=== PATIENT | female | born 1970 | race African-American/Black ===

== ENCOUNTER 2020-01-20 00:10 | Emergency (ER) | payer OTHER ==
[~2020-01-20] VITALS: Ht 157.5 cm; Wt 81.8 kg
[2020-01-20] MEDS ORDERED: ANAS1TAB2 (00:18)
[2020-01-20 01:38] LABS: BASO % 0.1 % (0.0-1.0); EOS # 0.1 10^3/uL (0.0-0.5); EOS % 1.9 % (0.0-3.0); HEMATOCRIT 40.1 % (36.0-47.0); HEMOGLOBIN 12.4 g/dl (12.0-15.5); LYMPH # 1.4 10^3/uL (1.5-5.0); LYMPH % 18.7 % (24.0-44.0); MEAN CORPUSCULAR HEMOGLOBIN 29.2 pg (27.0-33.0); MEAN CORPUSCULAR HGB CONC 30.9 g/dl (32.0-36.5); MEAN CORPUSCULAR VOLUME 94.4 fl (80.0-96.0); MONO # 0.5 10^3/uL (0.0-0.8); MONO % 6.3 % (0.0-5.0); NEUTROPHILS # 5.3 10^3/uL (1.5-8.5); NEUTROPHILS % 72.6 % (36.0-66.0); PLATELET COUNT, AUTOMATED 269 10^3/uL (150-450); RED BLOOD COUNT 4.25 10^6/uL (4.00-5.40); WHITE BLOOD COUNT 7.3 10^3/uL (4.0-10.0)
[2020-01-20] MEDS ORDERED: ISOVUE-370 76% 100ML VIAL (Q9967) As Ordered ONE (01:48)
[2020-01-20 01:59] LABS: ALBUMIN 3.5 GM/DL (3.2-5.2); ALT/SGPT 25 U/L (12-78); BILIRUBIN,TOTAL 0.3 MG/DL (0.2-1.0); BLOOD UREA NITROGEN 7 MG/DL (7-18); C REACTIVE PROTEIN QUANTITATIV 6.25 MG/DL (0.00-0.30); CALCIUM LEVEL 8.5 MG/DL (8.5-10.1); CARBON DIOXIDE LEVEL 24 MEQ/L (21-32); CHLORIDE LEVEL 107 MEQ/L (98-107); CREATININE FOR GFR 0.79 MG/DL (0.55-1.30); GLOMERULAR FILTRATION RATE > 60.0 (>58); GLUCOSE, FASTING 77 MG/DL (70-100); POTASSIUM SERUM 3.7 MEQ/L (3.5-5.1); SODIUM LEVEL 137 MEQ/L (136-145)
--- NOTE | 2020-01-20 02:41 | REPVR ---
PROCEDURE INFORMATION: Exam: CT Angiography Chest With Contrast Exam date and time: 01/20/2020 1:08 AM Age: 49 years old Clinical indication: Patient HX: History of breast cancer, recent breast SX in December 2019; Additional info: SOB, cough TECHNIQUE: Imaging protocol: Computed tomographic angiography of the chest with intravenous contrast. 3D rendering: MIP and/or 3D reconstructed images were created by the technologist. Radiation optimization: All CT scans at this facility use at least one of these dose optimization techniques: automated exposure control; mA and/or kV adjustment per patient size (includes targeted exams where dose is matched to clinical indication); or iterative reconstruction. Contrast material: ISO; Contrast volume: 75 ml; Contrast route: AC; COMPARISON: No relevant prior studies available. FINDINGS: Tubes, catheters and devices: There is a right internal jugular Port-A-Cath terminating in the distal superior vena cava. Pulmonary arteries: No pulmonary embolism is identified. Great vessels off aortic arch: The brachiocephalic artery, imaged proximal portion of the left common carotid artery, and left subclavian artery are intact. No stenosis or occlusion of these vessels is noted. Aorta: There is no thoracic aortic aneurysm, pseudoaneurysm, penetrating atherosclerotic ulcer, intramural hematoma, or dissection. Tracheobronchial tree: Patent. Lungs: There is compressive atelectasis in the right middle lobe and right lower lobe. No lung consolidation, mass, or emphysematous changes are noted. Pleural space: There is a moderate to large right pleural effusion, which measures water density. There are soft tissue density nodules along the inferior aspect of the right pleural space, the largest measuring 2.6 cm. No pneumothorax. Heart: No cardiomegaly or pericardial effusion. The ratio of the diameter of the right ventricle to the diameter of the left ventricle measures less than 1, which is within normal limits and there is no evidence for a right ventricular strain. Mediastinum: No mediastinal fluid collection or pneumomediastinum is noted. Limited liver: There is fatty infiltration of the liver with geographic areas of focal fatty sparing. There is a 3.2 cm lesion in the superior lateral segment 2 of the left hepatic lobe, which measures approximately 39 Hounsfield units and is indeterminate (image 143 of the axial series 501). The liver was not fully imaged. Gallbladder and bile ducts: No calcified gallstones are noted. No gallbladder wall thickening, pericholecystic fluid, or pericholecystic inflammatory changes are identified. No dilation of the intrahepatic or extrahepatic bile ducts is noted. Spleen: The spleen is heterogeneous in appearance, which is likely secondary to the arterial timing of the contrast bolus. No splenomegaly. Adrenals: Normal. No adrenal mass is noted. Lymph nodes: There is a a 25 mm enlarged left axillary lymph node, an enlarged 18 mm subcarinal lymph node, and a 10 mm enlarged distal periesophageal lymph node, which were measured in short axis. There are also 4 mm and 6 mm right cardiophrenic angle lymph nodes. Bones/joints: No fracture or dislocation is noted. There is no suspicious osteolytic or osteoblastic lesion. There are endplate spurs in the thoracic spine. Soft tissues: Bilateral intact prepectoral saline breast implants are in place. There is a small amount of fluid around the right breast implant. There is edema in the subcutaneous tissues of the anterior chest wall. IMPRESSION: 1. No pulmonary embolism. 2. Moderate to large right pleural effusion with associated compressive atelectasis in the right middle lobe and right lower lobe. 3. 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 4. Left axillary, subcarinal, and distal periesophageal lymphadenopathy, which likely represents metastatic disease. 5. Fatty liver with geographic areas of focal fatty sparing and a 3.2 cm indeterminate lesion in the superior lateral segment of the left hepatic lobe. Further evaluation with a multiphasic liver protocol MRI abdomen without and with intravenous contrast is suggested. Electronically signed by: Marco Doss On 01/20/2020 02:41:29 AM
[2020-01-20] MEDS ORDERED: FUROSEMIDE 40 MG/4 ML VIAL (J1940) IV ONE (02:45)
[2020-01-20] MEDS ORDERED: FURO40TA2 PO (03:35)
[2020-01-20 03:55] VITALS: BP 133/69
== END 2020-01-20 03:58 | disposition home or self-care (01) ==
LOC: M ED 00:10
DX: L76.34 Postprocedural seroma of skin and subcutaneous tissue following other procedure (principal); R91.8 Other nonspecific abnormal finding of lung field; R59.9 Enlarged lymph nodes, unspecified; J90 Pleural effusion, not elsewhere classified; K76.89 Other specified diseases of liver; K76.0 Fatty (change of) liver, not elsewhere classified; Z88.0 Allergy status to penicillin; Z91.048 Other nonmedicinal substance allergy status
CPT/HCPCS: 36415; 71275; 80053; 85025; 86140; 87070; 87077; 87186; 87205; 99283; J1940; Q9967

== ENCOUNTER → 2020-02-02 | Outpatient (CLI) | payer OTHER ==
[~2020-02-02] MED LIST: ANAS1TAB2; DOXY-350 PO; FURO40TA2 PO; POTA10CA32 PO; PROHANCE 279.3MG/ML 15ML VIAL (A9576) As Ordered ONE; PROHANCE 279.3MG/ML 5ML VIAL (A9576) As Ordered ONE
--- NOTE | 2020-02-02 10:38 | REP ---
MRI BRAIN WITH AND WITHOUT CONTRAST: TECHNIQUE: Multiple sequences obtained in the axial and sagittal planes prior to and following the intravenous administration of 16 mL ProHance. The ventricles are normal in size and position with no midline shift or mass effect. Garcia-white differentiation is well-maintained. A few punctate foci due to hyperintensity are seen in the periventricular and subcortical white matter bilaterally compatible with some minimal small vessel ischemic change/gliosis. There is no acute infarct. No suspicious enhancing nodule or mass is seen. There is no extra-axial fluid collection. The globes are intact. Brain stem and cerebellum are unremarkable with no abnormal signal or enhancement. 7th and 8th cranial nerve complexes are unremarkable. Visualized paranasal sinuses are demonstrate no abnormal signal. Please note the study is limited by patient motion. IMPRESSION: Limited exam due to patient motion. No evidence of intracranial metastatic disease. Electronically Signed by Lonnie Garcia MD 02/02/2020 10:54 A
== END ==
LOC: M RAD 06:41
PROVIDERS: ATTEND Internal Medicine Medical Oncology
DX: C50.912 Malignant neoplasm of unspecified site of left female breast (principal)
CPT/HCPCS: 70553; A9576

== ENCOUNTER → 2020-02-03 | Outpatient (CLI) | payer OTHER ==
[~2020-02-03] MED LIST changes: -PROHANCE 279.3MG/ML 15ML VIAL (A9576) As Ordered ONE; -PROHANCE 279.3MG/ML 5ML VIAL (A9576) As Ordered ONE
--- NOTE | 2020-02-04 13:51 | REP ---
REASON FOR EXAM: History of breast carcinoma. COMPARISON: None. After the intravenous administration of 8.62 millicuries of FDG 18 triplane whole body PET/CT was performed from the skull base to the mid thigh. In the left lobe of the thyroid gland, left paratracheal region, there is a focus of abnormal increased radionuclide accumulation having SUV values greater than +4. In the left axilla, there is a 4 cm sized mass with markedly increased FDG accumulation having marked SUV values greater than +18. Hypermetabolic activity is seen in the mediastinum and right hilum. The SUV valves are greater than +4 with a right hilar maximum SUV of 8.41 and with a mediastinal maximal SUV valve of just over +13. There is marked abnormal hypermetabolic activity seen throughout the right hemithoracic pleura. The maximal SUV valve of this abnormal pleural activity is just under +18. CT component of this examination shows a large right pleural effusion with compressive atelectatic changes in the right lung. Aforementioned intrathoracic hypermetabolic activity in the mediastinum and right hilum consistent with rather extensive lymphadenopathy. No other areas of abnormal hypermetabolic activity is seen on the neck, chest, abdomen or pelvis. IMPRESSION: 1. Multiple foci of abnormal hypermetabolic activity as described above. The activity seen in the neck is of uncertain etiology and is either secondary to a metastatic lymph node or possibly concomitant thyroid disease. This needs to be further evaluated clinically and with additional thyroid imaging. The abnormal intrathoracic hypermetabolic activity, particularly in the mediastinum and right hilum likely secondary to metastatic disease, however, the abnormal hypermetabolic activity seen in the right hemithoracic pleural reflections could indicate either metastatic disease or inflammatory changes or even a combination of both. This would need to be further investigated. The reason for the large right pleural effusion is also uncertain at this time. Further evaluation is necessary. 2. Other findings as described above. Electronically Signed by Glenn Main DO 02/04/2020 03:51 P
== END ==
LOC: M PLARAD 15:07
PROVIDERS: ATTEND Internal Medicine Medical Oncology
DX: C50.812 Malignant neoplasm of overlapping sites of left female breast (principal); J90 Pleural effusion, not elsewhere classified
CPT/HCPCS: 78815; A9552

== ENCOUNTER → 2020-02-11 | Outpatient (CLI) | payer OTHER ==
[~2020-02-11] MED LIST changes: +ACETAMINOPHEN 325 MG TAB As Ordered ONE; +ACETAMINOPHEN 325 MG TAB PO PRN; +IBRA125C PO; +LETR2.5T2 PO; +ZOFR4TAB16 PO
--- NOTE | 2020-02-11 14:25 | REP ---
CHEST, TWO VIEWS: Two views of the chest are performed following right thoracentesis. There is no pneumothorax. There is moderate pleural fluid remaining with mild adjacent parenchymal opacity. Right central venous catheter is seen with the tip in the superior vena cava. The heart is not enlarged. Left lung appears clear. IMPRESSION: No pneumothorax, status post right thoracentesis. There is moderate residual right pleural fluid. Electronically Signed by Lonnie Garcia MD 02/11/2020 02:56 P
[2020-02-11 15:30] VITALS: BP 186/97
--- NOTE | 2020-02-11 15:57 | REP ---
Ultrasound-guided thoracentesis The procedure was performed by DALILA Clark, under the direct supervision of Dr. Garcia. The risks and benefits of the procedure were explained to the patient and informed consent was obtained both verbally and written. Directly prior to the start of the procedure, a formal timeout was completed in the exam room. Pleural fluid on the right lung zone was localized using ultrasound guidance. The skin was prepped and draped in a sterile fashion. 10 of 1% lidocaine 10 mg/ml was used as a local anesthetic. Using ultrasound guidance, an 8-Armenian multi side-hole catheter was inserted and advanced into the fluid. 1,410 ml of reddish colored fluid was withdrawn and sent to the lab for analysis. The patient tolerated the procedure well and there were no immediate complications. After the appropriate amount of monitored convalescence, the patient was discharged from the department. Reviewed by DALILA Hollis 02/11/2020 03:47 P Electronically Signed by Lonnie Garcia MD 02/11/2020 03:48 P
== END ==
LOC: M IRPRO 11:51
PROVIDERS: ATTEND Internal Medicine Medical Oncology
DX: C50.912 Malignant neoplasm of unspecified site of left female breast (principal); J91.0 Malignant pleural effusion

== ENCOUNTER → 2020-02-18 | Outpatient (CLI) | payer OTHER ==
[~2020-02-18] MED LIST changes: -ACETAMINOPHEN 325 MG TAB As Ordered ONE; -ACETAMINOPHEN 325 MG TAB PO PRN
[2020-02-18 09:56] LABS: BASO % 0.3 % (0.0-1.0); EOS # 0.1 10^3/uL (0.0-0.5); HEMATOCRIT 39.3 % (36.0-47.0); HEMOGLOBIN 12.4 g/dl (12.0-15.5); LYMPH # 1.3 10^3/uL (1.5-5.0); LYMPH % 20.2 % (24.0-44.0); MEAN CORPUSCULAR HEMOGLOBIN 28.5 pg (27.0-33.0); MEAN CORPUSCULAR HGB CONC 31.6 g/dl (32.0-36.5); MEAN CORPUSCULAR VOLUME 90.3 fl (80.0-96.0); MONO # 0.5 10^3/uL (0.0-0.8); MONO % 7.2 % (0.0-5.0); NEUTROPHILS # 4.5 10^3/uL (1.5-8.5); PLATELET COUNT, AUTOMATED 293 10^3/uL (150-450); RED BLOOD COUNT 4.35 10^6/uL (4.00-5.40); WHITE BLOOD COUNT 6.4 10^3/uL (4.0-10.0)
[2020-02-18 10:03] LABS: ALT/SGPT 41 U/L (12-78); BILIRUBIN,TOTAL 0.4 MG/DL (0.2-1.0); BLOOD UREA NITROGEN 6 MG/DL (7-18); CALCIUM LEVEL 8.8 MG/DL (8.5-10.1); CARBON DIOXIDE LEVEL 24 MEQ/L (21-32); CHLORIDE LEVEL 105 MEQ/L (98-107); CREATININE FOR GFR 0.75 MG/DL (0.55-1.30); GLOMERULAR FILTRATION RATE > 60.0 (>58); GLUCOSE, FASTING 95 MG/DL (70-100); POTASSIUM SERUM 4.4 MEQ/L (3.5-5.1); SODIUM LEVEL 137 MEQ/L (136-145); TOTAL PROTEIN 7.8 GM/DL (6.4-8.2)
== END ==
LOC: M LAB 09:01
PROVIDERS: ATTEND Internal Medicine Medical Oncology
DX: C50.919 Malignant neoplasm of unspecified site of unspecified female breast (principal)